=== PATIENT | female | born 1950 | race Caucasian/White ===

== ENCOUNTER → 2017-05-22 | Outpatient (REF) | payer MEDICARE ==
[2017-05-22 19:22] LABS: PHOSPHORUS LEVEL 2.5 MG/DL (2.5-4.9)
== END ==
LOC: M LAB REF 17:17
DX: R00.2 Palpitations (principal)
CPT/HCPCS: 84100

== ENCOUNTER → 2017-06-05 | Outpatient (CLI) | payer MEDICARE | LOC: M WHC 10:37 | DX: Z12.31 Encounter for screening mammogram for malignant neoplasm of breast (principal) | CPT/HCPCS: 77067 ==

== ENCOUNTER → 2018-03-06 | Outpatient (CLI) | payer MEDICARE ==
[2018-03-06 09:48] LABS: HEMATOCRIT 40.5 % (36.0-47.0); HEMOGLOBIN 13.4 g/dl (12.0-15.5); MEAN CORPUSCULAR HEMOGLOBIN 30.9 pg (27.0-33.0); MEAN CORPUSCULAR HGB CONC 33.1 g/dl (32.0-36.5); MEAN CORPUSCULAR VOLUME 93.3 fl (80.0-96.0); PLATELET COUNT, AUTOMATED 211 10^3/uL (150-450); RED BLOOD COUNT 4.34 10^6/uL (4.00-5.40); RED CELL DISTRIBUTION WIDTH 11.9 % (11.5-14.5); WHITE BLOOD COUNT 5.2 10^3/uL (4.0-10.0)
[2018-03-06 09:58] LABS: PROTHROMBIN TIME 13.4 SECONDS (12.1-14.4)
[2018-03-06 10:21] LABS: ALBUMIN 3.9 GM/DL (3.2-5.2); ALKALINE PHOSPHATASE 88 U/L (45-117); ALT/SGPT 23 U/L (12-78); ANION GAP 7 MEQ/L (8-16); AST/SGOT 32 U/L (7-37); BILIRUBIN,TOTAL 1.3 MG/DL (0.2-1.0); BLOOD UREA NITROGEN 12 MG/DL (7-18); CARBON DIOXIDE LEVEL 28 MEQ/L (21-32); CHLORIDE LEVEL 104 MEQ/L (98-107); CREATININE FOR GFR 0.75 MG/DL (0.55-1.30); GLOMERULAR FILTRATION RATE > 60.0 (>45); GLUCOSE, FASTING 105 MG/DL (70-100); POTASSIUM SERUM 4.4 MEQ/L (3.5-5.1); SODIUM LEVEL 139 MEQ/L (136-145); TOTAL PROTEIN 6.5 GM/DL (6.4-8.2)
[2018-03-06 10:30] LABS: ERYTHROCYTE SEDIMENTATION RATE 14 mm/hr (0-30)
== END ==
LOC: M LAB 09:03
DX: Z01.818 Encounter for other preprocedural examination (principal); M17.11 Unilateral primary osteoarthritis, right knee; R94.31 Abnormal electrocardiogram [ECG] [EKG]
CPT/HCPCS: 71046

== ENCOUNTER 2018-03-30 05:44 | Inpatient (IN) | payer MEDICARE ==
[2018-03-30] MEDS ORDERED: CLINDAMYCIN 900 MG/50 ML PREMIX BAG As Ordered (06:12)
[2018-03-30 06:33] LABS: BEDSIDE GLUCOSE 126 MG/DL (80-115)
[2018-03-30] MEDS: LR 1,000 ML IV ×3 (06:36→16:00)
[2018-03-30] MEDS ORDERED: fentaNYL 100 MCG/2 ML INJECTION (J3010) As Ordered (06:53)
[2018-03-30] MEDS ORDERED: MIDAZOLAM INJ 2 MG/2 ML VIAL (J2250) As Ordered ×2 (06:54→07:09)
[2018-03-30] MEDS ORDERED: ONDANSETRON 4MG/2ML VIAL (J2405) As Ordered (07:09)
[2018-03-30] MEDS ORDERED: LIDOCAINE 2% INJ 100 MG/5 ML SDV (FOR ANES.) As Ordered (07:09)
[2018-03-30] MEDS ORDERED: PROPOFOL 200 MG/20 ML VIAL As Ordered ×3 (07:09→08:36)
[2018-03-30] MEDS ORDERED: dexameTHASONE 4 MG/ML 1ML VIAL (J1100) As Ordered (07:09)
[2018-03-30] MEDS ORDERED: EPINEPHrine INJ 1 MG/ML 1ML AMP As Ordered ×2 (07:16→09:49)
[2018-03-30] MEDS: ceFAZolin 1GM INJ (J0690 PER 500MG) As Ordered (07:16)
[2018-03-30] MEDS: fentaNYL 100 MCG/2 ML INJECTION (J3010) IV (07:26)
[2018-03-30] MEDS: MIDAZOLAM INJ 2 MG/2 ML VIAL (J2250) IV (07:27)
[2018-03-30] MEDS: CLINDAMYCIN 900 MG in APPROPRIATE DILUENT 1 EA IV ×2 (08:00→16:44)
[2018-03-30] MEDS: TRANEXAMIC ACID 100 MG/ML 10ML VIAL As Ordered (08:11)
[2018-03-30] MEDS: CLINDAMYCIN INJ 900MG/6ML VIAL As Ordered (08:20)
[2018-03-30] MEDS ORDERED: ePHEDrine SULFATE 25 MG/5 ML(5MG/ML) SYRINGE As Ordered ×2 (08:33→08:42)
[2018-03-30] MEDS ORDERED: BUPIVACAINE/DEXTROSE 0.75% 2 ML AMP As Ordered (08:33)
[2018-03-30] MEDS: BUPIVACAINE LIPOSOME/PF 1.3% 20ML VIAL (13.3MG/ML)(EXPAREL)(C9290 PER1MG) As Ordered (08:45)
[2018-03-30] MEDS ORDERED: FLEET ENEMA PR (09:45)
[2018-03-30] MEDS ORDERED: ACETAMINOPHEN TAB 650MG DOSE (2X325MG) PO (09:45)
[2018-03-30 10:01] LABS: BEDSIDE GLUCOSE 150 MG/DL (80-115)
[2018-03-30] MEDS ORDERED: PERCOCET 5MG/325MG TAB PO (10:15)
[2018-03-30] MEDS ORDERED: ONDANSETRON 4MG/2ML VIAL (J2405) IV (10:15)
[2018-03-30] MEDS ORDERED: fentaNYL 100 MCG/2 ML INJECTION (J3010) IV (10:15)
[2018-03-30] MEDS: HYDROMORPHONE HCL 0.5 MG/ 0.5 ML SYRINGE (J1170 PER 1) IV ×4 (11:56→18:15)
[2018-03-30 12:36] LABS: HEMATOCRIT 39.3 % (36.0-47.0); HEMOGLOBIN 13.5 g/dl (12.0-15.5); MEAN CORPUSCULAR HEMOGLOBIN 30.7 pg (27.0-33.0); MEAN CORPUSCULAR HGB CONC 34.4 g/dl (32.0-36.5); MEAN CORPUSCULAR VOLUME 89.3 fl (80.0-96.0); PLATELET COUNT, AUTOMATED 210 10^3/uL (150-450); RED CELL DISTRIBUTION WIDTH 11.9 % (11.5-14.5); WHITE BLOOD COUNT 7.5 10^3/uL (4.0-10.0)
[2018-03-30 13:03] LABS: ANION GAP 12 MEQ/L (8-16); BLOOD UREA NITROGEN 11 MG/DL (7-18); CALCIUM LEVEL 8.8 MG/DL (8.8-10.2); CARBON DIOXIDE LEVEL 23 MEQ/L (21-32); CHLORIDE LEVEL 105 MEQ/L (98-107); CREATININE FOR GFR 0.81 MG/DL (0.55-1.30); GLOMERULAR FILTRATION RATE > 60.0 (>45); GLUCOSE, FASTING 155 MG/DL (70-100); POTASSIUM SERUM 3.5 MEQ/L (3.5-5.1); SODIUM LEVEL 140 MEQ/L (136-145)
[2018-03-30] MEDS: GABAPENTIN 300 MG CAP PO ×2 (16:44→21:00)
[2018-03-30] MEDS: LISINOPRIL 10 MG TAB PO (16:45)
[2018-03-30] MEDS: FUROSEMIDE 20 MG TAB PO (16:45)
[2018-03-30 17:28] LABS: BEDSIDE GLUCOSE 193 MG/DL (80-115)
[2018-03-30 20:17] LABS: BEDSIDE GLUCOSE 255 MG/DL (80-115)
[2018-03-30] MEDS ORDERED: ONDANSETRON 4 MG TAB (S0181) PO (20:45)
[2018-03-30] MEDS: OMEPRAZOLE 20 MG CAP PO (21:00)
[2018-03-30] MEDS: PERCOCET 5MG/325MG TAB PO (21:00)
[2018-03-30] MEDS: SIMVASTATIN 20 MG TAB PO (21:01)
[2018-03-31] MEDS: CLINDAMYCIN 900 MG in APPROPRIATE DILUENT 1 EA IV (00:58)
[2018-03-31] MEDS: PERCOCET 5MG/325MG TAB PO ×3 (01:01→11:26)
[2018-03-31 06:25] LABS: HEMATOCRIT 37.7 % (36.0-47.0); HEMOGLOBIN 12.4 g/dl (12.0-15.5); MEAN CORPUSCULAR HEMOGLOBIN 30.2 pg (27.0-33.0); MEAN CORPUSCULAR HGB CONC 32.9 g/dl (32.0-36.5); PLATELET COUNT, AUTOMATED 233 10^3/uL (150-450)
[2018-03-31 06:36] LABS: INR 1.02; PROTHROMBIN TIME 13.5 SECONDS (12.1-14.4)
[2018-03-31] MEDS ORDERED: LIDOCAINE 1% MDV 20ML VIAL (09:46)
[2018-03-31] MEDS ORDERED: ROPIvacaine 0.5% 30 ML INJECTION (J2795 PER 1MG) (09:46)
[2018-03-31] MEDS ORDERED: dexameTHASONE 10 MG/1 ML VIAL PRES.FREE (J1100) (09:46)
[2018-03-31] MEDS: MIRALAX *UNIT DOSE* 17GM PACKET PO (09:54)
[2018-03-31] MEDS: MOM 30ML SUSPENSION UDC PO (09:54)
[2018-03-31] MEDS: GABAPENTIN 300 MG CAP PO (09:55)
[2018-03-31] MEDS: OMEPRAZOLE 20 MG CAP PO (09:55)
[2018-03-31] MEDS: LISINOPRIL 10 MG TAB PO (09:55)
[2018-03-31] MEDS: buPROPion **XL** TABLET 150MG (WELLBUTRIN XL) PO (09:56)
[2018-03-31] MEDS: METOPROLOL SUCC (TopROL XL) 50MG **XL** TAB PO (09:56)
[2018-03-31] MEDS: FUROSEMIDE 20 MG TAB PO (09:56)
[2018-03-31] MEDS ORDERED: RIVAROXABAN 10 MG TAB (XARELTO) PO (18:00)
== END 2018-03-31 12:39 | disposition home or self-care (01) | DRG 470 ==
LOC: M OR 05:44 → M MS5PR 12:25
PROVIDERS: Orthopaedic Surgery
PROC: 0SRC0J9 Replacement of Right Knee Joint with Synthetic Substitute, Cemented, Open Approach (ICD-10-PCS; principal; 2018-03-30 07:30)
DX: M17.11 Unilateral primary osteoarthritis, right knee (principal); Z68.42 Body mass index [BMI] 45.0-49.9, adult; E11.42 Type 2 diabetes mellitus with diabetic polyneuropathy; I10 Essential (primary) hypertension; E78.5 Hyperlipidemia, unspecified; K21.9 Gastro-esophageal reflux disease without esophagitis; F41.9 Anxiety disorder, unspecified; I51.7 Cardiomegaly; Z90.49 Acquired absence of other specified parts of digestive tract; Z88.0 Allergy status to penicillin; Z91.040 Latex allergy status; Z79.891 Long term (current) use of opiate analgesic; Z79.82 Long term (current) use of aspirin; Z79.899 Other long term (current) drug therapy; E66.9 Obesity, unspecified

== ENCOUNTER 2018-03-31 17:31 | Emergency (ER) | payer MEDICARE ==
[2018-03-31] MEDS: HYDROMORPHONE HCL 0.5 MG/ 0.5 ML SYRINGE (J1170 PER 1) IV (18:27)
[2018-03-31] MEDS: oxyCODONE 5MG TAB PO (19:19)
== END 2018-03-31 21:32 | disposition home or self-care (01) ==
LOC: M ED 17:31
DX: M25.561 Pain in right knee (principal); G89.18 Other acute postprocedural pain; E11.9 Type 2 diabetes mellitus without complications; I10 Essential (primary) hypertension; E78.5 Hyperlipidemia, unspecified; K21.9 Gastro-esophageal reflux disease without esophagitis; F41.9 Anxiety disorder, unspecified; Z98.890 Other specified postprocedural states; Z91.040 Latex allergy status; Z88.0 Allergy status to penicillin; Z91.048 Other nonmedicinal substance allergy status; Z79.01 Long term (current) use of anticoagulants; Z79.899 Other long term (current) drug therapy
CPT/HCPCS: J1170

== ENCOUNTER → 2018-07-05 | Outpatient (REF) | payer MEDICARE ==
[~2018-07-05] MED LIST: /CELE20CA PO; ACET65TA OR; ASPI1TAB PO; ASPI81TA83 PO; BUPR150T3 PO; CALCIUM PO; COLA100C2 PO; FIBER TABS PO; FLEX-A-MIN PO; FURO20TA2 PO; GABA-843 PO; LISI10TA4 PO; LISI20TA5 OR; LOPR50TA PO; MELA10CA PO; METO1TAB7 PO; METRONIDAZOLE CREAM TD; NITR0.4S SL; OMEP20CA3 PO; ONGLYZA PO; PARO40TA3 PO; PAROXETINE HCL PO; PERC5TAB12 PO; PRIL40CA PO; SIMV20TA2 PO; STOOL SOFTENER OTC PO; TRAM50TA2 PO; TRUL0.5I SC; TYLE650T35 PO; VICO5TAB PO; XARE10TA PO
[2018-07-05 18:36] LABS: BASO % 0.3 % (0.0-1.0); EOS # 0.1 10^3/uL (0.0-0.50); EOS % 1.4 % (0.0-3.0); HEMATOCRIT 39.3 % (36.0-47.0); HEMOGLOBIN 12.8 g/dl (12.0-15.5); LYMPH # 1.8 10^3/uL (1.5-4.5); LYMPH % 28.1 % (24.0-44.0); MEAN CORPUSCULAR HEMOGLOBIN 29.7 pg (27.0-33.0); MEAN CORPUSCULAR HGB CONC 32.6 g/dl (32.0-36.5); MEAN CORPUSCULAR VOLUME 91.2 fl (80.0-96.0); MONO # 0.4 10^3/uL (0.0-0.8); MONO % 6.2 % (0.0-5.0); NEUTROPHILS % 63.7 % (36.0-66.0); PLATELET COUNT, AUTOMATED 250 10^3/uL (150-450); RED BLOOD COUNT 4.31 10^6/uL (4.00-5.40); WHITE BLOOD COUNT 6.3 10^3/uL (4.0-10.0)
[2018-07-05 19:53] LABS: ERYTHROCYTE SEDIMENTATION RATE 18 mm/hr (0-30)
== END ==
LOC: M LABDRAW1 16:52
PROVIDERS: ATTEND Orthopaedic Surgery
DX: M25.561 Pain in right knee (principal)

== ENCOUNTER → 2019-03-01 | Outpatient (REF) | payer MEDICARE ==
[~2019-03-01] MED LIST changes: -/CELE20CA PO; -ASPI1TAB PO; +ASPI81TA26 PO; +CELE1CAP4 PO; -OMEP20CA3 PO; +OMEP20CA4 PO
[2019-03-01 19:29] LABS: APPEARANCE, URINE CLEAR (CLEAR); BACTERIA, URINE AUTO 3+ (NEGATIVE); BILIRUBIN, URINE AUTO NEGATIVE (NEGATIVE); BLOOD, URINE BLOOD NEGATIVE (NEGATIVE); COLOR, URINE YELLOW (YELLOW); GLUCOSE, URINE (UA) AUTO NEGATIVE (NEGATIVE); KETONE, URINE AUTO NEGATIVE (NEGATIVE); LEUKOCYTE ESTERASE, URINE AUTO NEGATIVE (NEGATIVE); NITRITE, URINE AUTO NEGATIVE (NEGATIVE); PROTEIN, URINE AUTO NEGATIVE (NEGATIVE); RBC, URINE AUTO 0 /HPF (0-3); SQUAMOUS EPITHELIAL CELL UR AU 3 /HPF (0-6); UROBILINOGEN, URINE AUTO 0.2 mg/dL (0.0-2.0); WBC, URINE AUTO 1 /HPF (0-3)
== END ==
LOC: M LAB REF 16:22
PROVIDERS: ATTEND Internal Medicine
DX: Z01.810 Encounter for preprocedural cardiovascular examination (principal); M65.321 Trigger finger, right index finger; Z79.899 Other long term (current) drug therapy

== ENCOUNTER → 2023-10-30 | Outpatient (CLI) | payer MEDICARE ==
[~2023-10-30] MED LIST changes: +ACET650T61 PO; +BUPR150T12 PO; -BUPR150T3 PO; +CHLO125TA; +CLIN-250; +GABA-282 PO; -GABA-843 PO; +LISI10TA22 PO; +OMEP1CAP73 PO; -OMEP20CA4 PO; +SIMV20TA22 PO; +SPIR-10; +TOPI25TA10; -TYLE650T35 PO
== END ==
LOC: M PLAIMG 13:43
PROVIDERS: ATTEND Physician Assistant
DX: I35.8 Other nonrheumatic aortic valve disorders (principal)

== ENCOUNTER → 2025-01-16 | Outpatient (CLI) | payer MEDICARE ==
[~2025-01-16] MED LIST changes: +GABA-1172 PO; -GABA-282 PO; +METHACHOLINE KIT (6 VIAL.NEB PREMIX) INH ONE; +TOPI-256; -TOPI25TA10
== END ==
LOC: M CARPUL 08:28
PROVIDERS: ATTEND Internal Medicine
DX: R06.2 Wheezing (principal)
CPT/HCPCS: 94070; 95070; J7674